=== PATIENT | female | born 1965 | race Caucasian/White ===

== ENCOUNTER → 2016-12-24 | Outpatient (CLI) | payer OTHER ==
[2016-12-31 17:04] LABS: HPV 16 Not Detected (NOTDET); HPV 18 Not Detected (NOTDET)
== END ==
LOC: MW.CHOBGYN 16:17
PROVIDERS: ATTEND Nurse Practitioner Women's Health
DX: Z12.4 Encounter for screening for malignant neoplasm of cervix (principal); N92.0 Excessive and frequent menstruation with regular cycle
CPT/HCPCS: 36415; 84443; 85025; 85610; 87624; G0145

== ENCOUNTER → 2017-01-12 | Outpatient (CLI) | payer OTHER ==
--- NOTE | 2017-01-12 15:45 | US ---
EXAMINATION: Transvaginal pelvic ultrasound HISTORY: Excessive menstruation COMPARISON: None TECHNIQUE: Grayscale, color Doppler, and spectral Doppler images obtained transvaginally. FINDINGS: The uterus is grossly normal in size, contour, and echogenicity without a focal uterine ma ss. The fundus of the uterus is not well characterized. The endometrial stripe measures roughly 9 mm . Small low density and cysts are noted. No significant free pelvic fluid. Small right ovarian cysts are noted measuring up to 2.3 cm. The left ovary appears normal in size a nd contour. Normal color and spectral Doppler flow bilaterally. No adnexal masses. IMPRESSION: 1. The uterine fundus is not well-characterized. 2. Small right ovarian cyst.
== END | disposition home or self-care (01) ==
LOC: MW.US 10:02
PROVIDERS: ATTEND Nurse Practitioner Women's Health
DX: N92.0 Excessive and frequent menstruation with regular cycle (principal); N83.201 Unspecified ovarian cyst, right side; K62.9 Disease of anus and rectum, unspecified; A63.0 Anogenital (venereal) warts; Z86.19 Personal history of other infectious and parasitic diseases
CPT/HCPCS: 76830; 76830-26; 87070; 87077; 87186; 87252; 87254; 87491; 87591; 87624

== ENCOUNTER → 2017-01-25 | Outpatient (CLI) | payer OTHER | LOC: MW.CHOBGYN 15:13 | PROVIDERS: ATTEND Obstetrics & Gynecology | DX: N92.0 Excessive and frequent menstruation with regular cycle (principal) | CPT/HCPCS: 88305 ==

== ENCOUNTER 2017-05-25 08:49 | Day surgery (SDC) | payer OTHER ==
[~2017-05-25 08:49] MED LIST: Ketorolac 30 MG/ML SDV ONE; Midazolam 1 MG/ML 2 ML SDV ONE; Ondansetron 4 MG/2 ML SDV ONE; Propofol 200 MG/20 ML SDV ONE; fentaNYL 100 MCG/2 ML SDV ONE
[2017-05-25] MEDS ORDERED: Lactated Ringers 1,000 ML IV SCH (09:30)
--- NOTE | 2017-05-25 09:43 | PCM.PREANE ---
Preanesthetic Assessment - Anesthesia/Transfusion/Family Hx Anesthesia History: Prior Anesthesia Reaction Other Type of Anesthesia Reaction Comment: "bad" reaction to anesthetic drug used in general () and dental Family History of Anesthesia Reaction: No Transfusion History: No Prior Transfusion(s) Intubation History: Unknown - Review of Systems General: No Symptoms Pulmonary: No Symptoms Cardiovascular: No Symptoms Gastrointestinal: No Symptoms Neurological: No Symptoms Other: Reports: None - Physical Assessment NPO Status Date: 05/24/17 NPO Status Time: 23:30 O2 Sat by Pulse Oximetry: 97 Respiratory Rate: 16 Vital Signs: Last Vital Signs Temp 36.4 C 05/25/17 09:29 Pulse 73 05/25/17 09:29 Resp 16 05/25/17 09:29 BP 93/49 L 05/25/17 09:29 Pulse Ox 97 05/25/17 09:29 Height: 1.6 m Weight: 78.018 kg ASA Class: 3 Mental Status: Alert & Oriented x3 Airway Class: Mallampati = 2 Dentition: Reports: Normal Dentition Thyro-Mental Finger Breadths: 2 Mouth Opening Finger Breadths: 2 ROM/Head Extension: Full Lungs: Clear to Auscultation, Normal Respiratory Effort Cardiovascular: Regular Rate, Regular Rhythm - Lab Values: Laboratory Last Values WBC 7.85 K/uL (4.0-11.0) 05/24/17 14:07 RBC 3.71 M/uL (4.30-5.90) L 05/24/17 14:07 Hgb 10.5 g/dL (12.0-16.0) L 05/24/17 14:07 Hct 33.2 % (36.0-46.0) L 05/24/17 14:07 MCV 89.5 fL (80.0-98.0) 05/24/17 14:07 MCH 28.3 pg (27.0-32.0) 05/24/17 14:07 MCHC 31.6 g/dL (31.0-37.0) 05/24/17 14:07 RDW Std Deviation 53.7 fl (28.0-62.0) 05/24/17 14:07 RDW Coeff of Dylon 17 % (11.0-15.0) H 05/24/17 14:07 Plt Count 388 K/uL (150-400) 05/24/17 14:07 MPV 8.60 fL (7.40-12.00) 05/24/17 14:07 Nucleated RBC % 0.0 /100WBC 05/24/17 14:07 Nucleated RBCs # 0 K/uL 05/24/17 14:07 Potassium 3.6 mmol/L (3.5-5.1) 05/24/17 14:07 - Allergies Allergies/Adverse Reactions: Allergies Allergy/AdvReac Type Severity Reaction Status Date / Time No Known Allergies Allergy Verified 05/21/17 16:10 - Blood Blood Available: No - Anesthesia Plan Pre-Op Medication Ordered: None - Acknowledgements Anesthesia Type Planned: General Anesthesia Pt an Appropriate Candidate for the Planned Anesthesia: Yes Alternatives and Risks of Anesthesia Discussed w Pt/Guardian: Yes Pt/Guardian Understands and Agrees with Anesthesia Plan: Yes PreAnesthesia Questionnaire Other HEENT History: uses reading glasses, has upper denture Cardiovascular History: Reports: Hypertension Respiratory History: Reports: Sleep Apnea Other Respiratory History: sometimes uses CPAP Gastrointestinal History: Reports: Irritable Bowel Syndrome 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, Musculoskeletal History: Reports: Fibromyalgia, Osteoporosis, RA Neurological History: Reports: Seizure Other Neuro History: had a seizure but thought it was related to PTSD Psychiatric History: Reports: Anxiety, Depression, PTSD Endocrine/Metabolic History: Reports: Hypothyroidism, Obesity/BMI 30+ Hematologic History: Reports: Anemia Immunologic History: Reports: Other (See Below) Other Immunologic History: has some form of Lupus Other Dermatologic History: rosacea - Past Surgical History HEENT Surgical History: Reports: Oral Surgery Other HEENT Surgeries/Procedures: dental Female Surgical History: Reports: Section Other Female Surgeries/Procedures: x3 Musculoskeletal Surgical History: Reports: None - SUBSTANCE USE Smoking Status *Q: Never Smoker Recreational Drug Use History: No - HOME MEDS Home Medications: Home Meds Cholecalciferol (Vitamin D3) [Vitamin D3] 50,000 unit PO WEEKLY 05/24/17 [ History] Diazepam [Valium] 5 mg PO BID 05/24/17 [History] Escitalopram [Lexapro] 20 mg PO DAILY 05/24/17 [History] Folic Acid 3 mg PO DAILY 05/24/17 [History] Gabapentin [Neurontin] 600 mg PO TID 05/24/17 [History] Ibuprofen 800 mg PO TID PRN 05/24/17 [History] Levothyroxine 25 mcg PO DAILY 05/24/17 [History] Lisinopril/Hydrochlorothiazide [Lisinopril-Hctz 10-12.5 mg Tab] 1 tab PO DAILY 05/24/17 [History] Methotrexate 2.5 mg PO DAILY 05/24/17 [History] busPIRone [Buspar] 15 mg PO TID 05/24/17 [History] predniSONE [Prednisone] 5 mg PO BID 05/24/17 [History] traMADol [Ultram] 50 mg PO Q4H PRN 05/24/17 [History] - CURRENT (IN HOUSE) MEDS Current Meds: Current Medications Lactated Ringer's (Ringers, Lactated) 1,000 mls @ 100 mls/hr IV ASDIRECTED [facility] Last Admin: 05/25/17 09:34 Dose: 100 mls/hr Discontinued Medications Fentanyl (Sublimaze) Confirm Administered Dose 200 mcg .ROUTE .STK-MED ONE Stop: 05/25/17 07:20 Ketorolac Tromethamine (Toradol) Confirm Administered Dose 30 mg .ROUTE .STK- MED ONE Stop: 05/25/17 07:31 Lidocaine HCl (Xylocaine-Mpf 1%) Confirm Administered Dose 5 ml .ROUTE .STK-MED ONE Stop: 05/25/17 07:20 Midazolam HCl (Versed 1 Mg/Ml) Confirm Administered Dose 2 mg .ROUTE .STK-MED ONE Stop: 05/25/17 07:20 Ondansetron HCl (Zofran) Confirm Administered Dose 4 mg .ROUTE .STK-MED ONE Stop: 05/25/17 07:20 Propofol (Diprivan 20 Ml) Confirm Administered Dose 200 mg .ROUTE .STK-MED ONE Stop: 05/25/17 07:20
[2017-05-25] MEDS ORDERED: Ferric Subsulfate Topical Soln 8 GM (8 ML) Bottle ONE (09:52)
[2017-05-25] MEDS ORDERED: ceFAZolin 1 GM Vial ONE (10:45)
[2017-05-25] MEDS ORDERED: methylPREDNISolone Sodium Succinate 125 MG/2 ML SDV ONE (10:46)
--- NOTE | 2017-05-25 11:42 | PCM.OPNOTE ---
- General Post-Op/Procedure Note Date of Surgery/Procedure: 05/25/17 Operative Procedure(s): Colposcopy with multiple cervical biopsies, operative hysteroscopy with directed endometrial biopsy, fractional dilatation and curettage, thermal endometrial ablation Findings: Anteverted uterus, sounding to 8.5 cm. Multiple polypoid structures along posterior uterine wall, biopsied. Bilateral tubal ostia were visualized. Colposcopic findings, included visualization of entire transformation zone, with acetowhite epithelium noted, and some vascular prominence at 2 o'clock Pre Op Diagnosis: Menorrhagia, ASCUS pap with high risk HPV Post-Op Diagnosis: Same Anesthesia Technique: General LMA Primary Surgeon: Kristyn French Anesthesia Provider: Delroy Rodríguez Wordpress Developer: Raimundo Perdomo Pathology: Cervical biopsies at the 2 o'clock, 6 o'clock, and 9 o'clock positions, directed endometrial biopsy at posterior uterine wall, endometrial curettings, endocervical curettings Fluid Replacement, Intraop: 900 (hysteroscopic deficit 125 ml NS) EBL in mLs: 10 Complications: None known Condition: Good
[2017-05-25] MEDS ORDERED: fentaNYL 100 MCG/2 ML SDV ONE (11:53)
[2017-05-25] MEDS: fentaNYL 100 MCG/2 ML SDV IVPUSH PRN ×2 (11:56→12:01)
[2017-05-25] MEDS ORDERED: Acetaminophen/HYDROcodone 325-5 MG Tab PO ONE (12:44)
--- NOTE | 2017-05-25 13:29 | OR ---
SURGEON: Kristyn French M.D. DATE OF PROCEDURE: 05/25/2017 PREOPERATIVE DIAGNOSES: Menorrhagia and abnormal Pap atypical squamous cells of undetermined significance with positive human papillomavirus. POSTOPERATIVE DIAGNOSES: Menorrhagia and abnormal Pap atypical squamous cells of undetermined significance with positive human papillomavirus. PROCEDURES: 1. Colposcopy with multiple cervical biopsies. 2. Operative hysteroscopy with directed endometrial biopsy. 3. Fractional dilation and curettage and Gladis endometrial ablation. PHERESIS NURSE: AMAYA [email or web address]. ANESTHESIA: General. ESTIMATED BLOOD LOSS: Less than 50 mL. FLUIDS: 900 mL crystalloid. Hysteroscopic deficit of 125 mL normal saline. COMPLICATION: None known. DISPOSITION: Stable to recovery. OPERATIVE FINDINGS: Uterus is sharply anteverted, it sounds to 8.5 cm with a cervical length of 4.5 cm giving a fundal length of 4 cm. The uterine cavity was well visualized. Bilateral tubal ostia were visualized. The posterior wall of the endometrium had a prominent irregular growth which was directly biopsied. Upon colposcopy, the entire transformation zone was visible and was acetowhite with some atypical vessels at 2 o'clock. Biopsies were taken at 2, 9, and 6 o'clock. BRIEF HISTORY: This is a 51-year-old female. She presents with a history of anemia and menorrhagia, which has been uncontrolled following office endometrial biopsy, which was benign in January and failing norethindrone, and with a hemoglobin ranging from 10.2 to 10.8. She presents for further evaluation and treatment. She also had an atypical Pap with a positive HPV with a colposcopy performed in the office, however, biopsies were not performed and therefore she does desire to proceed with a colposcopy with cervical biopsies. Due to her heavy bleeding, she desires also to proceed with an endometrial ablation, which is acceptable given the fact that she has had a previously benign endometrial biopsy. Risks were discussed including risk of bleeding, infection, uterine perforation with injury to surrounding organs, risk of thromboembolic event, and risk of anesthesia, additional risk of endometrial ablation include masking future endometrial cancer, risk of post tubal ablation syndrome. Risk of failure of 10% to 15%. She understands under no circumstances should she become after the ablation has occurred. Understanding all these risks, she does desire to proceed. DESCRIPTION OF PROCEDURE: With the patient in dorsal lithotomy position, under adequate general analgesia, an appropriate time-out was held. The speculum was placed in the vagina. The cervix was treated with 5% dilute acetic acid and was inspected with the colposcope with findings as noted above. Biopsies of the cervix were taken at 2, 6, and 9 o'clock positions and sent each as separate specimens. The biopsy sites were treated with Monsel solution as well as silver nitrate and excellent hemostasis was obtained. With this being completed, the duck bill operator's gloves were changed and we scrubbed, and the perineum was prepped appropriately with Betadine as well as the vagina and draped in the usual fashion for vaginal surgery. The bladder had been drained with a Red La catheter. The speculum was placed into the vagina. The uterus had been palpated and was sharply anteverted 8-week size. The cervix was sounded to 4.5 cm. The uterine fundus was sounded to 8.5 cm. The cervix was further dilated to a 6 mm Hegar dilator. Hysteroscopy was then performed using normal saline as a distending medium and with the hysteroscopic fluid management system. There was excellent visualization. Bilateral tubal ostia were identified. The MyoSure device was utilized to directly biopsy the posterior wall endometrium, which was fairly prominent and irregular. This being completed, a sharp curettage of the endocervix was performed and collected with a Cytobrush and sharp curettage of the endometrium was performed with a moderate amount of tissue obtained. This being completed, the Gladis system was set up according to jigger artisan guidelines. The arms were retracted and with negative pressure on the balloon, the Gladis device was placed to the uterine fundus and gently tapped. The fundus as well as the arms were spread after the balloon was released. The balloon was then filled with air and test of patency was performed and no evidence of perforation. Therefore, the 2-minute treatment cycle was performed. When this was completed, the balloon was desufflated. The arms were retracted and the instrument was removed. Hysteroscopy was repeated and it looked like there was excellent coverage of the endometrium except in the far cornual locations and there was no evidence of any perforation. Therefore, the hysteroscope was removed. The cervix was again inspected for hemostasis and it was completely hemostatic. Therefore, the speculum was removed from the vagina. Final sponge, needle, and instrument counts were reported as correct. There were no known complications. The patient was transferred to recovery in good condition. JASON QUAN /[id number]
[2017-05-25 13:56] VITALS: BP 115/61
== END 2017-05-25 13:40 | disposition home or self-care (01) ==
LOC: MW.SDS 08:49
PROVIDERS: ATTEND Obstetrics & Gynecology
DX: N87.0 Mild cervical dysplasia (principal); M06.9 Rheumatoid arthritis, unspecified; M79.7 Fibromyalgia; I10 Essential (primary) hypertension; K58.9 Irritable bowel syndrome, unspecified; M81.0 Age-related osteoporosis without current pathological fracture; G47.30 Sleep apnea, unspecified; F41.9 Anxiety disorder, unspecified; F32.9 Major depressive disorder, single episode, unspecified; M32.9 Systemic lupus erythematosus, unspecified; E03.9 Hypothyroidism, unspecified; Z79.52 Long term (current) use of systemic steroids; Z79.899 Other long term (current) drug therapy; Z98.51 Tubal ligation status; Z98.890 Other specified postprocedural states; Z88.4 Allergy status to anesthetic agent
CPT/HCPCS: 36415; 57455; 58563; 84132; 85027; A9270; J0690; J1885; J2250; J2405; J2930; J3010; J7120; 00952; 88305; J2704

== ENCOUNTER 2017-11-07 11:12 | Emergency (ER) | payer OTHER ==
--- NOTE | 2017-11-07 11:29 | EDM.PDOC ---
ED HPI GENERAL MEDICAL PROBLEM - General Chief Complaint: Fever Stated Complaint: FEVER Time Seen by Provider: 11/07/17 11:19 Source of Information: Reports: Patient History Limitations: Reports: No Limitations - History of Present Illness INITIAL COMMENTS - FREE TEXT/NARRATIVE: HISTORY AND PHYSICAL: History of present illness: Patient is a 59-year-old female who presents to the emergency room today with complaints of fever, cough, sinus congestion. She states she was seen at the clinic on Wednesday by her primary care provider and placed on amoxicillin for sinus infection. She has been taking this medication and had felt like she was improving. Yesterday she noted the cough, nasal congestion and fever of 102. She states that the symptoms came on "all of a sudden". Has been taking her antibiotic, Tylenol/ibuprofen and scheduled prednisone (which she takes for her RA). She reports that her currently has influenza B and neither her or she M had been placed on Tamiflu. She denies any chest pain, shortness of breath, abdominal pain, nausea, vomiting or diarrhea. Review of systems: As per history of present illness and below otherwise all systems reviewed and negative. Past medical history: As per history of present illness and as reviewed below otherwise noncontributory. Surgical history: As per history of present illness and as reviewed below otherwise noncontributory. Social history: No reported history of drug or alcohol abuse. Family history: As per history of present illness and as reviewed below otherwise noncontributory. Physical exam: General: Well-developed and well-nourished 51-year-old female. Alert and oriented. Nontoxic appearing and in no acute distress. HEENT: Atraumatic, normocephalic, pupils reactive, negative for conjunctival pallor or scleral icterus, mucous membranes moist, TMs normal bilaterally, throat clear, neck supple, nontender, trachea midline. Lungs: Clear to auscultation, breath sounds equal bilaterally, chest nontender. Heart: S1S2, regular rate and rhythm Abdomen: Soft, nondistended, nontender. Negative for masses or hepatosplenomegaly. Negative for costovertebral tenderness. Pelvis: Stable nontender. Genitourinary: Deferred. Rectal: Deferred. Extremities: Atraumatic, negative for cords or calf pain. Neurovascular unremarkable. Skin: Skin is warm, dry and intact. Does have marlyn cheeks bilaterally. Neuro: Awake, alert, oriented. Cranial nerves II through XII unremarkable. Cerebellum unremarkable. Motor and sensory unremarkable throughout. Exam nonfocal. Oxygen saturation is 93% on room air read will do a DuoNeb, chest x-ray and influenza swab. After receiving the DuoNeb the patient reports she feels "much better". RT did provide the patient with a spacer as she does have a inhaler at home from a previous illness. She states that she believes the medication is almost out, would like a refill. Diagnostics: Influenza, chest x-ray Therapeutics: DuoNeb Impression: 1. Viral Upper Respiratory Illness. Plan: 1. Please continue and complete your antibiotic. 2. They Medrol Dosepak has been prescribed. Please hold your prednisone until this medication course is completed. Once the Medrol Dosepak is completed you may resume your regularly scheduled prednisone dosing. 3. Symptomatic care/supportive care: Tylenol and/or ibuprofen as needed for pain and fever management. Phenergan with codeine has been prescribed for cough and nighttime use he may take 5-10 amounts every 4-6 hours as needed. Condition may cause drowsiness he do not take it while driving or needing to be functioning outside of the house. 4. Follow-up with your primary care provider within the next week. Return to the ED as needed and as discussed. Definitive disposition and diagnosis as appropriate pending reevaluation and review of above. Duration: Day(s): Location: Reports: Head, Chest headache Pain Score (Numeric/FACES): 9 - Related Data Allergies Allergy/AdvReac Type Severity Reaction Status Date / Time Anesthetics - Amide Type Allergy Hypotension Verified 11/07/17 11:28 Home Meds: Home Meds Cholecalciferol (Vitamin D3) [Vitamin D3] 50,000 unit PO WEEKLY 05/24/17 [ History] Diazepam [Valium] 5 mg PO BID 05/24/17 [History] Escitalopram [Lexapro] 20 mg PO DAILY 05/24/17 [History] Folic Acid 3 mg PO DAILY 05/24/17 [History] Gabapentin [Neurontin] 600 mg PO TID 05/24/17 [History] Ibuprofen 800 mg PO TID PRN 05/24/17 [History] Levothyroxine 25 mcg PO DAILY 05/24/17 [History] Lisinopril/Hydrochlorothiazide [Lisinopril-Hctz 10-12.5 mg Tab] 1 tab PO DAILY 05/24/17 [History] Methotrexate 2.5 mg PO DAILY 05/24/17 [History] busPIRone [Buspar] 15 mg PO TID 05/24/17 [History] predniSONE [Prednisone] 5 mg PO BID 05/24/17 [History] traMADol [Ultram] 50 mg PO Q4H PRN 05/24/17 [History] Ibuprofen [IMW: Ibuprofen] 600 mg PO .EVERY 8 HOURS PRN #30 tab 05/25/17 [Rx] Past Medical History Other HEENT History: uses reading glasses, has upper denture Cardiovascular History: Reports: Hypertension Respiratory History: Reports: Sleep Apnea Other Respiratory History: sometimes uses CPAP Gastrointestinal History: Reports: Irritable Bowel Syndrome 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, Musculoskeletal History: Reports: Fibromyalgia, Osteoporosis, RA Neurological History: Reports: Seizure Other Neuro History: had a seizure but thought it was related to PTSD Psychiatric History: Reports: Anxiety, Depression, PTSD Endocrine/Metabolic History: Reports: Hypothyroidism, Obesity/BMI 30+ Hematologic History: Reports: Anemia Immunologic History: Reports: Other (See Below) Other Immunologic History: has some form of Lupus Other Dermatologic History: rosacea - Past Surgical History HEENT Surgical History: Reports: Oral Surgery Other HEENT Surgeries/Procedures: dental Female Surgical History: Reports: Section Other Female Surgeries/Procedures: x3 Musculoskeletal Surgical History: Reports: None Social & Family History - Tobacco Use Smoking Status *Q: Never Smoker - Recreational Drug Use Recreational Drug Use: No Drug Use in Last 12 Months: No ED ROS GENERAL - Review of Systems Review Of Systems: ROS reveals no pertinent complaints other than HPI. ED EXAM, GENERAL - Physical Exam Exam: See Below (See dictation) Course - Vital Signs Last Recorded V/S: Last Vital Signs Temp 97.7 F 11/07/17 11:29 Pulse 108 H 11/07/17 11:29 Resp 18 11/07/17 11:29 BP 123/76 11/07/17 11:29 Pulse Ox 95 11/07/17 11:29 - Orders/Labs/Meds Orders: Active Orders 24 hr Category Date Time Status RT Aerosol Therapy [RC] ASDIRECTED Care 11/07/17 11:47 Active Chest 2V [CR] Stat Exams 11/07/17 11:47 Taken Meds: Medications Discontinued Medications Generic Name Dose Route Start Last Admin Trade Name Aubree PRN Reason Stop Dose Admin Albuterol/Ipratropium 3 ml 11/07/17 11:47 11/07/17 11:52 Duoneb 3.0-0.5 Mg/3 Ml NEB 11/07/17 11:48 3 ml ONETIME ONE Administration Departure - Departure Time of Disposition: 12:45 Disposition: Home, Self-Care 01 Clinical Impression: Viral upper respiratory illness - Discharge Information Referrals: Jeremi Mancera MD [Primary Care Provider] - Forms: ED Department Discharge Additional Instructions: My general discharge The following information is given to patients seen in the emergency department who are being discharged to home. This information is to outline your options for follow-up care. We provide all patients seen in our emergency department with a follow-up referral. The need for follow-up, as well as the timing and circumstances, are variable depending upon the specifics of your emergency department visit. If you don't have a primary care physician on staff, we will provide you with a referral. We always advise you to contact your personal physician following an emergency department visit to inform them of the circumstance of the visit and for follow-up with them and/or the need for any referrals to a consulting specialist. The emergency department will also refer you to a specialist when appropriate. This referral assures that you have the opportunity for follow-up care with a specialist. All of these measure are taken in an effort to provide you with optimal care, which includes your follow-up. Under all circumstances we always encourage you to contact your private physician who remains a resource for coordinating your care. When calling for follow-up care, please make the office aware that this follow-up is from your recent emergency room visit. If for any reason you are refused follow-up, please contact the [facility] Emergency Department at and asked to speak to the emergency department charge nurse. [facility] [address] [place] [id number] 1. Please continue and complete your antibiotic. 2. They Medrol Dosepak has been prescribed. Please hold your prednisone until this medication course is completed. Once the Medrol Dosepak is completed you may resume your regularly scheduled prednisone dosing. 3. Symptomatic care/supportive care: Tylenol and/or ibuprofen as needed for pain and fever management. Phenergan with codeine has been prescribed for cough and nighttime use he may take 5-10 amounts every 4-6 hours as needed. Condition may cause drowsiness he do not take it while driving or needing to be functioning outside of the house. 4. Follow-up with your primary care provider within the next week. Return to the ED as needed and as discussed. - My Orders Last 24 Hours: My Active Orders 11/07/17 11:47 RT Aerosol Therapy [RC] ASDIRECTED Chest 2V [CR] Stat - Assessment/Plan Last 24 Hours: My Active Orders 11/07/17 11:47 RT Aerosol Therapy [RC] ASDIRECTED Chest 2V [CR] Stat
[2017-11-07 11:31] VITALS: BP 123/76
[2017-11-07] MEDS ORDERED: Albuterol/Ipratropium 3.0-0.5 MG/3 ML Neb Soln NEB ONE (11:47)
--- NOTE | 2017-11-08 16:06 | CR ---
EXAM DATE: 11/07/17 PATIENT'S AGE: 51 Patient: ARINA HERNDON Facility: [place], [place] Site . Site : [id number] Study: XRay Chest [id number] 12:22:17 PM Ordering Physician: Doctor Trujillo Final Report: INDICATION: Pain. Shortness breath. TECHNIQUE: PA and lateral chest x-ray. Findings : Heart size normal. Lungs clear. Chest otherwise negative without acute disease. Dictated by Roman Jeffery MD @ Nov 07 2017 12:58PM (Electronic Signature) Report Signed by Proxy. JOAN
== END 2017-11-07 13:08 | disposition home or self-care (01) ==
LOC: MW.ED 11:12
DX: J06.9 Acute upper respiratory infection, unspecified (principal); I10 Essential (primary) hypertension; E03.9 Hypothyroidism, unspecified; Z79.899 Other long term (current) drug therapy
CPT/HCPCS: 71046; 71046-26; 87804; 94640; 99283; 99284-25

== ENCOUNTER 2018-04-26 13:51 | Emergency (ER) | payer OTHER ==
--- NOTE | 2018-04-26 13:57 | EDM.PDOC ---
ED HPI GENERAL MEDICAL PROBLEM - General Stated Complaint: DIZZY Time Seen by Provider: 04/26/18 14:01 Source of Information: Reports: Patient History Limitations: Reports: No Limitations - History of Present Illness INITIAL COMMENTS - FREE TEXT/NARRATIVE: HISTORY AND PHYSICAL: []Sudden onset of dizziness 45 minutes continues to be dizzy History of Present Illness: sudden onset of dizziness feeling like she is almost "drunk" worse when she moves her head Patient states that she was at work and all of a sudden became dizzy when she was talking on the phone with somebody from her job. She states that she felt like the room was spinning and that she was drunk. She states she has never had this sensation prior to today. She says this is ongoing as she is now in the emergency room. She states she had difficulty walking and then had to have the assistance of her otherwise she would've fallen. She states that on the right over she felt like she was riding an amusement ride. She has been on long- term steroids due to rheumatoid arthritis. She states that about a week ago she went from 10 mg to now at 5 mg. She states that she also feels nauseous although she has not had an episode of vomiting. She has a history of rheumatoid arthritis, fibromyalgia, diabetes but is not currently on medication. She denies fever, chills, chest tightness, shortness of breath, diaphoresis, cough, lower extremity edema, or syncope. She denies abdominal pain, diarrhea, constipation, or blood in her stool or urine. Review of Systems: As per history of present illness and below otherwise all systems reviewed and negative. Past medical history: As per history of present illness and as reviewed below otherwise noncontributory. Surgical history: As per history of present illness and as reviewed below otherwise noncontributory. Social history: No reported history of drug or alcohol abuse. Family history: As per history of present illness and as reviewed below otherwise noncontributory. Physical exam: General: Patient is a 52-year-old female, alert, oriented to person, place, and time but somewhat confused and slow to answer questions. HEENT: Atraumatic, normocehpalic, pupils reactive but delayed, negative for conjunctival pallor or scleral icterus, mucous membranes moist, throat clear, neck supple, nontender, trachea midline. Lungs: Clear to auscultation, breath sounds equal bilaterally, chest non tender. Heart: S1S2, regular, negative for clicks, rubs, or JVD. Abdomen: Soft, nondistended, nontender. Negative for masses or hepatossplenmegaly. Negative for costovertebral tenderness. Pelvis: Stable nontender. Genitourinary: Deferred. Rectal: Deferred Extremities: Atraumatic, negative for cords or calf pain. Neurovascular unremarkable. Neuro: Awake, alert, oriented. Cranial nerves II through XII unremarkable. Cerebellum unremarkable. Motor and sensory unremarkable throughout. Exam nonfocal. Diagnostics: Head CT without contrast, EKG CBC CMP urine drug screen UA urine culture Therapeutics: []Antivert 25 mg by mouth Impression: []vertigo Leukocytosis urine Plan: []Discharge Referral to Dr. Che Justice Bactrim DS tablet twice daily for 3 days Definitive disposition and diagnosis as appropriate pending reevaluation and review of above. Onset: Today, Sudden Duration: Minutes: Location: Reports: Head - Related Data Allergies Allergy/AdvReac Type Severity Reaction Status Date / Time Anesthetics - Amide Type Allergy Hypotension Verified 11/07/17 11:28 Home Meds: Home Meds Cholecalciferol (Vitamin D3) [Vitamin D3] 50,000 unit PO WEEKLY 05/24/17 [ History] Diazepam [Valium] 5 mg PO BID 05/24/17 [History] Escitalopram [Lexapro] 20 mg PO DAILY 05/24/17 [History] Folic Acid 3 mg PO DAILY 05/24/17 [History] Gabapentin [Neurontin] 600 mg PO TID 05/24/17 [History] Ibuprofen 800 mg PO TID PRN 05/24/17 [History] Levothyroxine 25 mcg PO DAILY 05/24/17 [History] Lisinopril/Hydrochlorothiazide [Lisinopril-Hctz 10-12.5 mg Tab] 1 tab PO DAILY 05/24/17 [History] busPIRone [Buspar] 15 mg PO TID 05/24/17 [History] predniSONE [Prednisone] 5 mg PO DAILY 05/24/17 [History] traMADol [Ultram] 50 mg PO Q4H PRN 05/24/17 [History] Ibuprofen [IMW: Ibuprofen] 600 mg PO .EVERY 8 HOURS PRN #30 tab 05/25/17 [Rx] Albuterol [Ventolin HFA] 1 puff INH Q4HR #1 inhaler 11/07/17 [Rx] DULoxetine [Cymbalta] 1 tab DAILY 04/26/18 [History] Sulfamethoxazole/Trimethoprim [Bactrim Ds Tablet] 1 each PO BID #6 tablet [Rx] Past Medical History HEENT History: Reports: Other (See Below) Other HEENT History: uses reading glasses, has upper denture Cardiovascular History: Reports: Hypertension Respiratory History: Reports: Sleep Apnea Other Respiratory History: sometimes uses CPAP Gastrointestinal History: Reports: Irritable Bowel Syndrome 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: 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 Uterine Bleeding, Musculoskeletal History: Reports: Fibromyalgia, Osteoporosis, RA Neurological History: Reports: Seizure Other Neuro History: had a seizure but thought it was related to PTSD Psychiatric History: Reports: Anxiety, Depression, PTSD Endocrine/Metabolic History: Reports: Hypothyroidism, Obesity/BMI 30+ Hematologic History: Reports: Anemia Immunologic History: Reports: Other (See Below) Other Immunologic History: has some form of Lupus Other Dermatologic History: rosacea - Infectious Disease History Infectious Disease History: Reports: Chicken Pox, Shingles - Past Surgical History HEENT Surgical History: Reports: Oral Surgery Other HEENT Surgeries/Procedures: dental Female Surgical History: Reports: Section Other Female Surgeries/Procedures: x3 Musculoskeletal Surgical History: Reports: None Social & Family History - Family History Family Medical History: Noncontributory - Caffeine Use Caffeine Use: Reports: Coffee ED ROS GENERAL - Review of Systems Review Of Systems: ROS reveals no pertinent complaints other than HPI. ED EXAM, GENERAL - Physical Exam Exam: See Below (see dictation) EKG INTERPRETATION EKG Date: 04/26/18 Rhythm: NSR Comparison: NA - No Prior EKG Course - Vital Signs Last Recorded V/S: Last Vital Signs Temp 36.1 C 04/26/18 13:58 Pulse 76 04/26/18 15:53 Resp 16 04/26/18 15:53 BP 121/70 04/26/18 15:53 Pulse Ox 97 04/26/18 15:53 - Orders/Labs/Meds Orders: Active Orders 24 hr Category Date Time Status EKG Documentation Completion [RC] STAT Care 04/26/18 14:15 Active Head wo Cont [CT] Stat Exams 04/26/18 14:13 Taken CULTURE URINE [RM] Stat Lab 04/26/18 15:50 Ordered DRUG SCREEN, URINE [URCHEM] Stat Lab 04/26/18 15:50 Ordered UA W/MICROSCOPIC [URIN] Stat Lab 04/26/18 15:50 Ordered Sodium Chloride 0.9% [Saline Flush] Med 04/26/18 14:26 Active 10 ml FLUSH ASDIRECTED PRN Sodium Chloride 0.9% [Saline Flush] Med 04/26/18 14:27 Active 10 ml FLUSH ASDIRECTED PRN Sodium Chloride 0.9% [Saline Flush] Med 04/26/18 14:26 Active 2.5 ml FLUSH ASDIRECTED PRN Sodium Chloride 0.9% [Saline Flush] Med 04/26/18 14:27 Active 2.5 ml FLUSH ASDIRECTED PRN Saline Lock Insert [OM.PC] Stat [facility] 04/26/18 14:17 Ordered Saline Lock Insert [OM.PC] Stat [facility] 04/26/18 14:27 Ordered Medication Orders Sodium Chloride (Saline Flush) 10 ml FLUSH ASDIRECTED PRN PRN Reason: Keep Vein Open Sodium Chloride (Saline Flush) 2.5 ml FLUSH ASDIRECTED PRN PRN Reason: Keep Vein Open Sodium Chloride (Saline Flush) 10 ml FLUSH ASDIRECTED PRN PRN Reason: Keep Vein Open Sodium Chloride (Saline Flush) 2.5 ml FLUSH ASDIRECTED PRN PRN Reason: Keep Vein Open Labs: Laboratory Tests 04/26/18 04/26/18 04/26/18 Range/Units 14:37 14:37 15:50 WBC 6.15 (4.0-11.0) K/uL RBC 4.55 (4.30-5.90) M/uL Hgb 14.4 (12.0-16.0) g/dL Hct 41.9 (36.0-46.0) % MCV 92.1 (80.0-98.0) fL MCH 31.6 (27.0-32.0) pg MCHC 34.4 (31.0-37.0) g/dL RDW Std Deviation 42.4 (28.0-62.0) fl RDW Coeff of Dylon 13 (11.0-15.0) % Plt Count 210 (150-400) K/uL MPV 9.10 (7.40-12.00) fL Neut % (Auto) 81.2 H (48.0-80.0) % Lymph % (Auto) 11.5 L (16.0-40.0) % [place] % (Auto) 6.7 (0.0-15.0) % Eos % (Auto) 0.3 (0.0-7.0) % Baso % (Auto) 0.3 (0.0-1.5) % Neut # (Auto) 5.0 (1.4-5.7) K/uL Lymph # (Auto) 0.7 (0.6-2.4) K/uL [place] # (Auto) 0.4 (0.0-0.8) K/uL Eos # (Auto) 0.0 (0.0-0.7) K/uL Baso # (Auto) 0.0 (0.0-0.1) K/uL Nucleated RBC % 0.0 /100WBC Nucleated RBCs # 0 K/uL Sodium 139 (136-145) mmol/L Potassium 3.6 (3.5-5.1) mmol/L Chloride 102 (98-107) mmol/L Carbon Dioxide 28.7 (21.0-32.0) mmol/L BUN 11 (7.0-18.0) mg/dL Creatinine 0.6 (0.6-1.0) mg/dL Est Cr Clr Drug Dosing 91.76 mL/min Estimated GFR (MDRD) > 60.0 ml/min Glucose 89 (74-106) mg/dL Calcium 9.1 (8.5-10.1) mg/dL Total Bilirubin 0.3 (0.2-1.0) mg/dL AST 25 (15-37) IU/L ALT 31 (14-63) IU/L Alkaline Phosphatase 42 L (46-116) U/L Troponin I < 0.050 (0.000-0.056) ng/mL Total Protein 7.5 (6.4-8.2) g/dL Albumin 4.1 (3.4-5.0) g/dL Globulin 3.4 (2.0-3.5) g/dL Albumin/Globulin Ratio 1.2 L (1.3-2.8) Urine Color YELLOW Urine Appearance CLEAR Urine pH 6.0 (5.0-8.0) Ur Specific [place] <= 1.005 (1.001-1.035) Urine Protein NEGATIVE (NEGATIVE) mg/dL Urine Glucose (UA) NEGATIVE (NEGATIVE) mg/dL Urine Ketones NEGATIVE (NEGATIVE) mg/dL Urine Occult Blood NEGATIVE (NEGATIVE) Urine Nitrite NEGATIVE (NEGATIVE) Urine Bilirubin NEGATIVE (NEGATIVE) Urine Urobilinogen 0.2 (<2.0) EU/dL Ur Leukocyte Esterase NEGATIVE (NEGATIVE) Urine RBC 0-1 (0-2/HPF) Urine WBC 0-1 (0-5/HPF) Ur Epithelial Cells MANY (NONE-FEW) Urine Bacteria 2+ H (NEGATIVE) Urine Opiates Screen (NEGATIVE) Ur Oxycodone Screen (NEGATIVE) Urine Methadone Screen (NEGATIVE) Ur Barbiturates Screen (NEGATIVE) Ur Phencyclidine Scrn (NEGATIVE) Ur Amphetamine Screen (NEGATIVE) U Methamphetamines Scrn (NEGATIVE) U Benzodiazepines Scrn (NEGATIVE) U Cocaine Metab Screen (NEGATIVE) U Marijuana (THC) Screen (NEGATIVE) Ethyl Alcohol < 3.0 mg/dL 04/26/18 Range/Units 15:50 WBC (4.0-11.0) K/uL RBC (4.30-5.90) M/uL Hgb (12.0-16.0) g/dL Hct (36.0-46.0) % MCV (80.0-98.0) fL MCH (27.0-32.0) pg MCHC (31.0-37.0) g/dL RDW Std Deviation (28.0-62.0) fl RDW Coeff of Dylon (11.0-15.0) % Plt Count (150-400) K/uL MPV (7.40-12.00) fL Neut % (Auto) (48.0-80.0) % Lymph % (Auto) (16.0-40.0) % [place] % (Auto) (0.0-15.0) % Eos % (Auto) (0.0-7.0) % Baso % (Auto) (0.0-1.5) % Neut # (Auto) (1.4-5.7) K/uL Lymph # (Auto) (0.6-2.4) K/uL [place] # (Auto) (0.0-0.8) K/uL Eos # (Auto) (0.0-0.7) K/uL Baso # (Auto) (0.0-0.1) K/uL Nucleated RBC % /100WBC Nucleated RBCs # K/uL Sodium (136-145) mmol/L Potassium (3.5-5.1) mmol/L Chloride (98-107) mmol/L Carbon Dioxide (21.0-32.0) mmol/L BUN (7.0-18.0) mg/dL Creatinine (0.6-1.0) mg/dL Est Cr Clr Drug Dosing mL/min Estimated GFR (MDRD) ml/min Glucose (74-106) mg/dL Calcium (8.5-10.1) mg/dL Total Bilirubin (0.2-1.0) mg/dL AST (15-37) IU/L ALT (14-63) IU/L Alkaline Phosphatase (46-116) U/L Troponin I (0.000-0.056) ng/mL Total Protein (6.4-8.2) g/dL Albumin (3.4-5.0) g/dL Globulin (2.0-3.5) g/dL Albumin/Globulin Ratio (1.3-2.8) Urine Color Urine Appearance Urine pH (5.0-8.0) Ur Specific [place] (1.001-1.035) Urine Protein (NEGATIVE) mg/dL Urine Glucose (UA) (NEGATIVE) mg/dL Urine Ketones (NEGATIVE) mg/dL Urine Occult Blood (NEGATIVE) Urine Nitrite (NEGATIVE) Urine Bilirubin (NEGATIVE) Urine Urobilinogen (<2.0) EU/dL Ur Leukocyte Esterase (NEGATIVE) Urine RBC (0-2/HPF) Urine WBC (0-5/HPF) Ur Epithelial Cells (NONE-FEW) Urine Bacteria (NEGATIVE) Urine Opiates Screen NEGATIVE (NEGATIVE) Ur Oxycodone Screen NEGATIVE (NEGATIVE) Urine Methadone Screen NEGATIVE (NEGATIVE) Ur Barbiturates Screen NEGATIVE (NEGATIVE) Ur Phencyclidine Scrn NEGATIVE (NEGATIVE) Ur Amphetamine Screen NEGATIVE (NEGATIVE) U Methamphetamines Scrn NEGATIVE (NEGATIVE) U Benzodiazepines Scrn POSITIVE (NEGATIVE) U Cocaine Metab Screen NEGATIVE (NEGATIVE) U Marijuana (THC) Screen NEGATIVE (NEGATIVE) Ethyl Alcohol mg/dL Meds: Medications Generic Name Dose Route Start Last Admin Trade Name Freq PRN Reason Stop Dose Admin Sodium Chloride 10 ml 04/26/18 14:26 Saline Flush FLUSH ASDIRECTED PRN Keep Vein Open Sodium Chloride 2.5 ml 04/26/18 14:26 Saline Flush FLUSH ASDIRECTED PRN Keep Vein Open Sodium Chloride 10 ml 04/26/18 14:27 Saline Flush FLUSH ASDIRECTED PRN Keep Vein Open Sodium Chloride 2.5 ml 04/26/18 14:27 Saline Flush FLUSH ASDIRECTED PRN Keep Vein Open Discontinued Medications Generic Name Dose Route Start Last Admin Trade Name Freq PRN Reason Stop Dose Admin Acetaminophen 650 mg 04/26/18 15:51 04/26/18 16:26 Tylenol PO 04/26/18 15:52 Not Given NOW ONE Ibuprofen 400 mg 04/26/18 16:26 04/26/18 16:40 Motrin PO 04/26/18 16:27 400 mg ONETIME ONE Administration Meclizine HCl 25 mg 04/26/18 16:35 04/26/18 16:40 Antivert PO 04/26/18 16:36 25 mg ONETIME ONE Administration Ondansetron HCl 4 mg 04/26/18 14:27 04/26/18 14:45 Zofran IVPUSH 04/26/18 14:28 4 mg ONETIME ONE Administration Departure - Departure Time of Disposition: 16:43 Disposition: Home, Self-Care 01 Condition: Good, Fair Clinical Impression: Vertigo UTI (urinary tract infection) Qualifiers: Urinary tract infection type: acute cystitis Hematuria presence: without hematuria Qualified Code(s): N30.00 - Acute cystitis without hematuria - Discharge Information *PRESCRIPTION DRUG MONITORING PROGRAM REVIEWED*: Not Applicable *COPY OF PRESCRIPTION DRUG MONITORING REPORT IN PATIENT GENIE: Not Applicable Prescriptions: Sulfamethoxazole/Trimethoprim [Bactrim Ds Tablet] 1 each PO BID #6 tablet Instructions: Benign Positional Vertigo Referrals: PCP,Unknown [Primary Care Provider] - Che Justice MD [Physician] - Additional Instructions: The following information is given to patients seen in the emergency department who are being discharged to home. This information is to outline your options for follow-up care. We provide all patients seen in our emergency department with a follow-up referral. The need for follow-up, as well as the timing and circumstances, are variable depending upon the specifics of your emergency department visit. If you don't have a primary care physician on staff, we will provide you with a referral. We always advise you to contact your personal physician following an emergency department visit to inform them of the circumstance of the visit and for follow-up with them and/or the need for any referrals to a consulting specialist. The emergency department will also refer you to a specialist when appropriate. This referral assures that you have the opportunity for followup care with a specialist. All of these measure are taken in an effort to provide you with optimal care, which includes your followup. Under all circumstances we always encourage you to contact your private physician who remains a resource for coordinating your care. When calling for followup care, please make the office aware that this follow-up is from your recent emergency room visit. If for any reason you are refused follow-up, please contact the [facility] emergency department at and asked to speak to the emergency department charge nurse. Head CT was negative for any bleed or lesion Sinuses were clear Vertigo remains Your treated with Antivert for the vertical Follow-up with Dr. Che Justice [facility] - Neurology Professional Building [address] [place] [address], [address] [place] [address] Return to the emergency room instructed - My Orders Last 24 Hours: My Active Orders 04/26/18 14:13 Head wo Cont [CT] Stat 04/26/18 14:15 EKG Documentation Completion [RC] STAT 04/26/18 14:17 Saline Lock Insert [OM.PC] Stat 04/26/18 14:26 Sodium Chloride 0.9% [Saline Flush] 10 ml FLUSH ASDIRECTED PRN Sodium Chloride 0.9% [Saline Flush] 2.5 ml FLUSH ASDIRECTED PRN 04/26/18 14:27 Sodium Chloride 0.9% [Saline Flush] 10 ml FLUSH ASDIRECTED PRN Sodium Chloride 0.9% [Saline Flush] 2.5 ml FLUSH ASDIRECTED PRN Saline Lock Insert [OM.PC] Stat 04/26/18 15:50 CULTURE URINE [RM] Stat DRUG SCREEN, URINE [URCHEM] Stat UA W/MICROSCOPIC [URIN] Stat - Assessment/Plan Last 24 Hours: My Active Orders 04/26/18 14:13 Head wo Cont [CT] Stat 04/26/18 14:15 EKG Documentation Completion [RC] STAT 04/26/18 14:17 Saline Lock Insert [OM.PC] Stat 04/26/18 14:26 Sodium Chloride 0.9% [Saline Flush] 10 ml FLUSH ASDIRECTED PRN Sodium Chloride 0.9% [Saline Flush] 2.5 ml FLUSH ASDIRECTED PRN 04/26/18 14:27 Sodium Chloride 0.9% [Saline Flush] 10 ml FLUSH ASDIRECTED PRN Sodium Chloride 0.9% [Saline Flush] 2.5 ml FLUSH ASDIRECTED PRN Saline Lock Insert [OM.PC] Stat 04/26/18 15:50 CULTURE URINE [RM] Stat DRUG SCREEN, URINE [URCHEM] Stat UA W/MICROSCOPIC [URIN] Stat
[2018-04-26] MEDS ORDERED: Sodium Chloride 0.9% 2.5 ML Syringe FLUSH PRN ×2 (14:26→14:27)
[2018-04-26] MEDS ORDERED: Sodium Chloride 0.9% 10 ML Syringe FLUSH PRN ×2 (14:26→14:27)
[2018-04-26] MEDS ORDERED: Ondansetron 4 MG/2 ML SDV IVPUSH ONE (14:27)
[2018-04-26 15:47] LABS: CHLORIDE,CL 102 mmol/L (98-107); SODIUM,NA 139 mmol/L (136-145)
[2018-04-26] MEDS ORDERED: Acetaminophen 325 MG Tab PO ONE (15:51)
[2018-04-26] MEDS ORDERED: Ibuprofen 400 MG Tab PO ONE (16:26)
[2018-04-26] MEDS ORDERED: Meclizine 25 MG Tab PO ONE (16:35)
[2018-04-26 16:58] VITALS: BP 99/71
--- NOTE | 2018-04-27 09:08 | CT ---
EXAM DATE: 04/26/18 PATIENT'S AGE: 52 Patient: ARINA HERNDON Facility: [place], [place] Site . Site : [id number] Study: CT Head [id number]/[id number] 3:41:09 PM Ordering Physician: Doctor Trujillo Final Report: INDICATION: dizzy, weakness CT HEAD WITHOUT CONTRAST TECHNIQUE: Multiple axial CT images were performed through the head without intravenous contrast administration. COMPARISON: No previous studies are currently available for comparison. FINDINGS: No acute intracranial hemorrhage is identified. No extra-axial collections are evident and there is no mass effect or midline shift. Ventricles are normal in size and configuration. Brain parenchyma appears normal with unremarkable onofre-white differentiation. Osseous structures are within normal limits and no fractures are seen. Included portions of the paranasal sinuses and mastoid air cells are normally aerated. IMPRESSION: Normal non-contrast head CT. BORIS MIRZA MD [employer] Dictated by: Paresh Mirza MD @ 04/26/2018 16:15:24 (Electronic Signature) Report Signed by Proxy. [facility]
== END 2018-04-26 16:59 | disposition home or self-care (01) ==
LOC: MW.ED 13:51
DX: N30.00 Acute cystitis without hematuria (principal); R42 Dizziness and giddiness; I10 Essential (primary) hypertension; E66.9 Obesity, unspecified; Z88.8 Allergy status to other drugs, medicaments and biological substances; Z79.899 Other long term (current) drug therapy
CPT/HCPCS: 36415; 70450; 80053; 80305; 81001; 84484; 85025; 87086; 93005; 96374; 99284; A9270; G0480; J2405; 99283

== ENCOUNTER 2018-06-21 08:28 | Day surgery (SDC) | payer OTHER ==
[~2018-06-21 08:28] MED LIST changes: -Ketorolac 30 MG/ML SDV ONE; +Lactated Ringers 1,000 ML IV SCH; -Midazolam 1 MG/ML 2 ML SDV ONE; -Ondansetron 4 MG/2 ML SDV ONE; -Propofol 200 MG/20 ML SDV ONE; -fentaNYL 100 MCG/2 ML SDV ONE
--- NOTE | 2018-06-21 08:53 | PCM.PREANE ---
Preanesthetic Assessment - Anesthesia/Transfusion/Family Hx Anesthesia History: Prior Anesthesia Reaction Other Type of Anesthesia Reaction Comment: "allergy to lidocaine" hypotention Family History of Anesthesia Reaction: No Transfusion History: No Prior Transfusion(s) Intubation History: Unknown - Review of Systems General: No Symptoms Pulmonary: No Symptoms Cardiovascular: No Symptoms Gastrointestinal: No Symptoms Neurological: No Symptoms Other: Reports: None - Physical Assessment Height: 1.6 m Weight: 82.1 kg ASA Class: 2 Mental Status: Alert & Oriented x3 Airway Class: Mallampati = 3 Dentition: Reports: Dentures (upper) Thyro-Mental Finger Breadths: 2 Mouth Opening Finger Breadths: 2 (small mouth) ROM/Head Extension: Full Lungs: Clear to Auscultation, Normal Respiratory Effort Cardiovascular: Regular Rate, Regular Rhythm - Lab Values: Laboratory Last Values WBC 11.01 K/uL (4.0-11.0) H 06/20/18 14:11 RBC 4.41 M/uL (4.30-5.90) 06/20/18 14:11 Hgb 14.2 g/dL (12.0-16.0) 06/20/18 14:11 Hct 41.7 % (36.0-46.0) 06/20/18 14:11 MCV 94.6 fL (80.0-98.0) 06/20/18 14:11 MCH 32.2 pg (27.0-32.0) H 06/20/18 14:11 MCHC 34.1 g/dL (31.0-37.0) 06/20/18 14:11 RDW Std Deviation 44.5 fl (28.0-62.0) 06/20/18 14:11 RDW Coeff of Dylon 13 % (11.0-15.0) 06/20/18 14:11 Plt Count 220 K/uL (150-400) 06/20/18 14:11 MPV 9.10 fL (7.40-12.00) 06/20/18 14:11 Nucleated RBC % 0.0 /100WBC 06/20/18 14:11 Nucleated RBCs # 0 K/uL 06/20/18 14:11 HCG, Qual NEGATIVE (NEG) 06/20/18 14:11 - Allergies Allergies/Adverse Reactions: Allergies Allergy/AdvReac Type Severity Reaction Status Date / Time lidocaine Allergy Hypotension Verified 06/16/18 12:45 - Blood Blood Available: No - Anesthesia Plan Pre-Op Medication Ordered: None - Acknowledgements Anesthesia Type Planned: MAC Pt an Appropriate Candidate for the Planned Anesthesia: Yes Alternatives and Risks of Anesthesia Discussed w Pt/Guardian: Yes Pt/Guardian Understands and Agrees with Anesthesia Plan: Yes PreAnesthesia Questionnaire HEENT History: Reports: Other (See Below) Other HEENT History: uses reading glasses, has upper denture Cardiovascular History: Reports: Hypertension Respiratory History: Reports: Sleep Apnea Other Respiratory History: uses CPAP, has prescribed inhaler due to pneumonia last year, no problems since Gastrointestinal History: Reports: Irritable Bowel Syndrome Genitourinary History: Reports: None 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: 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 Bleeding, Musculoskeletal History: Reports: Fibromyalgia, Osteoarthritis, RA Neurological History: Reports: None Psychiatric History: Reports: Anxiety, Depression, Panic Attack, PTSD Endocrine/Metabolic History: Reports: Hypothyroidism, Obesity/BMI 30+ Hematologic History: Reports: Anemia Immunologic History: Reports: Other (See Below) Other Immunologic History: has some form of Lupus Dermatologic History: Reports: None - Infectious Disease History Infectious Disease History: Reports: Chicken Pox, Shingles - Past Surgical History Head Surgeries/Procedures: Reports: None HEENT Surgical History: Reports: Oral Surgery Female Surgical History: Reports: Section, Dilitation & Evacuation, Endometrial Ablation, Tubal Ligation Other Female Surgeries/Procedures: x3, hysteroscopy, colpposcopy with biopsies Musculoskeletal Surgical History: Reports: None - SUBSTANCE USE Smoking Status *Q: Never Smoker Recreational Drug Use History: No - HOME MEDS Home Medications: Home Meds Cholecalciferol (Vitamin D3) [Vitamin D3] 50,000 unit PO WEEKLY 05/24/17 [ History] Diazepam [Valium] 5 mg PO TID PRN 05/24/17 [History] Escitalopram [Lexapro] 20 mg PO DAILY 05/24/17 [History] Folic Acid 3 mg PO TID 05/24/17 [History] Gabapentin [Neurontin] 600 mg PO TID 05/24/17 [History] Levothyroxine 25 mcg PO DAILY 05/24/17 [History] Lisinopril/Hydrochlorothiazide [Lisinopril-Hctz 10-12.5 mg Tab] 1 tab PO DAILY 08/21/17 [History] busPIRone [Buspar] 15 mg PO TID 05/24/17 [History] predniSONE [Prednisone] 5 mg PO BID 05/24/17 [History] traMADol [Ultram] 50 mg PO Q4H PRN 05/24/17 [History] Albuterol [Ventolin HFA] 1 puff INH Q4HR #1 inhaler 11/07/17 [Rx] DULoxetine [Cymbalta] 60 mg PO DAILY 04/26/18 [History] Diclofenac Sodium [Voltaren] 75 mg PO BID PRN 06/16/18 [History] Hydroxychloroquine [Plaquenil] 200 mg PO BID 06/16/18 [History] - CURRENT (IN HOUSE) MEDS Current Meds: Current Medications Lactated Ringer's (Ringers, Lactated) 1,000 mls @ 100 mls/hr IV ASDIRECTED [place]
[2018-06-21] MEDS ORDERED: Propofol 200 MG/20 ML SDV ONE (09:38)
[2018-06-21] MEDS ORDERED: fentaNYL 100 MCG/2 ML SDV ONE (09:38)
[2018-06-21] MEDS ORDERED: Midazolam 1 MG/ML 2 ML SDV ONE (09:40)
[2018-06-21] MEDS ORDERED: Ondansetron 4 MG/2 ML SDV ONE (10:31)
[2018-06-21] MEDS ORDERED: fentaNYL 100 MCG/2 ML SDV IVPUSH PRN (10:46)
--- NOTE | 2018-06-21 10:46 | PCM.OPNOTE ---
- General Post-Op/Procedure Note Date of Surgery/Procedure: 06/21/18 Operative Procedure(s): LEEP Findings: small area of acetowhite epithelium near cervical os. 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 Post-Op Diagnosis: Same Anesthesia Technique: General LMA Primary Surgeon: Kristyn French Anesthesia Provider: Jemima Elias Pathology: ectocervix labeled at 12 o'clock, endocervical curettings. Fluid Replacement, Intraop: 800 EBL in mLs: 10 Complications: None Known. Condition: Good
--- NOTE | 2018-06-21 11:35 | PCM.POSTAN ---
POST ANESTHESIA ASSESSMENT - MENTAL STATUS Mental Status: Alert, Oriented - RESPIRATORY Respiratory Status: Respiratory Rate WNL - CARDIOVASCULAR CV Status: Pulse Rate WNL, Blood Pressure Stable - GASTROINTESTINAL GI Status: No Symptoms - PAIN Pain Score: 0 - POST OP HYDRATION Hydration Status: Adequate & Stable - OBSERVATIONS Free Text/Narrative:: no anesthesia problems
[2018-06-21] MEDS ORDERED: traMADol 50 MG Tab PO ONE (11:41)
--- NOTE | 2018-06-21 12:13 | OR ---
SURGEON: Kristyn French M.D. DATE OF PROCEDURE: 06/21/2018 PREOPERATIVE DIAGNOSIS: Cervical intraepithelial neoplasia I, persistent x1 year. POSTOPERATIVE DIAGNOSIS: Cervical intraepithelial neoplasia I, persistent x1 year. PROCEDURE: Loop electrode excisional procedure. ANESTHESIA: General LMA. ESTIMATED BLOOD LOSS: Less than 10 mL. FLUIDS: 800 mL crystalloid. FINDINGS: Small area of acetowhite epithelium immediately at the cervical os. COMPLICATIONS: None known. DISPOSITION: Stable to recovery. SPECIMEN: Ectocervix labeled at 12 o'clock and endocervical curettings. BRIEF HISTORY: This is a 52-year-old female, she had a low-grade ARIS Pap last year. Biopsy showed CHARLEEN 1, was repeated this year with persistent CHARLEEN 1. She is immunosuppressed and therefore I did recommend proceeding with a LEEP to remove the transformation zone due to her persistent HPV, persistent dysplasia, and immunosuppression. Risks of LEEP were discussed including bleeding, infection, and she does desire to proceed. DESCRIPTION OF PROCEDURE: With the patient in dorsal lithotomy position, under adequate LMA analgesia, an appropriate time-out was held. The patient was draped. A speculum was placed in the vagina. Cervix was cleansed with dilute acetic acid. Colposcopy was performed with findings as noted above. She is allergic to lidocaine, therefore this was performed under LMA and no cervical block was performed. The cervix was treated with Lugol solution. The nonstaining area was identified. Loop electrode was then utilized to completely excise the nonstaining area with a pure cutting current of 60 rodriguez and specimen was then removed and labeled at 12 o'clock. Endocervical curettage was performed with the box curette and collected with a Cytobrush. The base of the LEEP site was cauterized with coag pure 60 with a ball tip and was completely hemostatic and the base was further treated with Monsel's solution to assure hemostasis. All the instruments removed from the vagina. Final sponge, needle, and instrument counts were reported as correct. There were no known complications. The patient was transferred to recovery in good condition. JASON QUAN /[id number]
[2018-06-21 12:50] VITALS: BP 96/48
== END 2018-06-21 12:25 | disposition home or self-care (01) ==
LOC: MW.SDS 08:28
PROVIDERS: ATTEND Obstetrics & Gynecology
DX: N87.0 Mild cervical dysplasia (principal); M06.9 Rheumatoid arthritis, unspecified; M79.7 Fibromyalgia; I10 Essential (primary) hypertension; K58.9 Irritable bowel syndrome, unspecified; G47.30 Sleep apnea, unspecified; Z99.89 Dependence on other enabling machines and devices; E07.9 Disorder of thyroid, unspecified; E66.9 Obesity, unspecified; Z68.32 Body mass index [BMI] 32.0-32.9, adult; D64.9 Anemia, unspecified; F43.10 Post-traumatic stress disorder, unspecified; F41.9 Anxiety disorder, unspecified; F32.9 Major depressive disorder, single episode, unspecified; Z79.899 Other long term (current) drug therapy; Z88.4 Allergy status to anesthetic agent
CPT/HCPCS: 36415; 57461; 84703; 85027; 88305; 88307; A9270; J2250; J2405; J2704; J3010; J7120

== ENCOUNTER 2018-12-31 17:54 | Emergency (ER) | payer OTHER ==
[2018-12-31] MEDS ORDERED: Albuterol/Ipratropium 3.0-0.5 MG/3 ML Neb Soln NEB ONE (18:35)
[2018-12-31 19:07] LABS: CHLORIDE,CL 107 mmol/L (98-107); SODIUM,NA 143 mmol/L (136-145)
--- NOTE | 2018-12-31 19:24 | EDM.PDOC ---
ED HPI GENERAL MEDICAL PROBLEM - General Chief Complaint: Fever Stated Complaint: FEVER Time Seen by Provider: 12/31/18 17:55 Source of Information: Reports: Patient History Limitations: Reports: No Limitations - History of Present Illness INITIAL COMMENTS - FREE TEXT/NARRATIVE: HISTORY AND PHYSICAL: History of present illness: Patient is a 53-year-old female who presents to the ED today with concern of cough causing burning in her chest. Patient states she was started on antibiotics this last week for strep pharyngitis. She states that since then she has developed a cough and low-grade fevers around 99F at home. Patient states she has been self adjusting medications and doses due to her recent illness. She states she has stopped her methotrexate. Patient states she has decreased her dose of her prednisone per herself. Patient states his complaint is the cough. She rates her pain 7 out of 10. Patient states the cough is beginning to make her feel short of breath at times. Patient states that due to her antibiotic use, she is experiencing vaginal itching and stats that she has a yeast infection with amicrobic use. She states she has had yeast infections in the past and that this is similar to her other infections. Denies headache, neck stiff ness, change in vision, syncope, or near syncope. Denies nausea, vomiting, abdominal pain, diarrhea, constipation, or dysuria. Has not noted any blood in urine or stool. Patient has been eating and drinking appropriately. Patient has a history of fibromyalgia, rheumatoid arthritis. Review of systems: As per history of present illness and below otherwise all systems reviewed and negative. Past medical history: As per history of present illness and as reviewed below otherwise noncontributory. Surgical history: As per history of present illness and as reviewed below otherwise noncontributory. Social history: See social history for further information Family history: As per history of present illness and as reviewed below otherwise noncontributory. Physical exam: General: Patient is alert, orientated, and in no acute distress. She is lying comfortably on exam table. HEENT: Atraumatic, normocephalic, pupils equal and reactive bilaterally, negative for conjunctival pallor or scleral icterus, mucous membranes moist, TMs normal bilaterally, throat clear, neck supple, nontender, trachea midline. No drooling or trismus noted. No meningeal signs. No hot potato voice noted. Lungs: Clear to auscultation, breath sounds equal bilaterally, chest nontender. Heart: S1S2, regular rate and rhythm without overt murmur Abdomen: Obese, soft, nondistended, nontender. Negative for masses or hepatosplenomegaly. Negative for costovertebral tenderness. Pelvis: Stable nontender. Genitourinary: Deferred. Rectal: Deferred. Skin: Intact, warm, dry. No lesions or rashes noted. Extremities: Atraumatic, negative for cords or calf pain. Neurovascular unremarkable. Neuro: Awake, alert, oriented. Cranial nerves II through XII unremarkable. Cerebellum unremarkable. Motor and sensory unremarkable throughout. Exam nonfocal. Notes: Exam and vitals today are reassuring. Will do labs and imaging today. Patient states she has been on antibiotics and is beginning to have symptoms of a yeast infection. Will rive rx for Diflucan. Supportive care measures were reviewed and discussed. Voices understanding and is agreeable to plan of care. Denies any further questions or concerns at this time. Diagnostics: CBC, CMP, UA, chest x-ray Therapeutics: Duoneb Prescription: Proair, Diflucan Impression: Bronchitis Yeast infection Plan: 1. Take medication as prescribed. You can alternate ibuprofen and Tylenol as directed for pain and discomfort. 2. Follow-up with your primary care provider or [facility] as discussed. 3. Return to ED as needed and as discussed. Definitive disposition and diagnosis as appropriate pending reevaluation and review of above. chest Pain Score (Numeric/FACES): 8 - Related Data Allergies Allergy/AdvReac Type Severity Reaction Status Date / Time lidocaine Allergy Hypotension Verified 12/31/18 18:20 Home Meds: Home Meds Diazepam [Valium] 5 mg PO TID PRN 05/24/17 [History] Escitalopram [Lexapro] 20 mg PO DAILY 05/24/17 [History] Folic Acid 3 mg PO TID 05/24/17 [History] Gabapentin [Neurontin] 600 mg PO TID 05/24/17 [History] Levothyroxine 25 mcg PO DAILY 05/24/17 [History] Lisinopril/Hydrochlorothiazide [Lisinopril-Hctz 10-12.5 mg Tab] 1 tab PO DAILY 05/24/17 [History] busPIRone [Buspar] 15 mg PO TID 05/24/17 [History] predniSONE [Prednisone] 5 mg PO BID 05/24/17 [History] Albuterol [Ventolin HFA] 1 puff INH Q4HR #1 inhaler 11/07/17 [Rx] Hydroxychloroquine [Plaquenil] 200 mg PO BID 06/16/18 [History] Cefdinir 300 mg PO BID 12/31/18 [History] Past Medical History HEENT History: Reports: Other (See Below) Other HEENT History: uses reading glasses, has upper denture Cardiovascular History: Reports: Hypertension Respiratory History: Reports: Sleep Apnea Other Respiratory History: uses CPAP, has prescribed inhaler due to pneumonia last year, no problems since Gastrointestinal History: Reports: Irritable Bowel Syndrome Genitourinary History: Reports: None PIPELINER History: Reports: 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 Uterine Bleeding, Musculoskeletal History: Reports: Fibromyalgia, Osteoarthritis, RA Neurological History: Reports: None Psychiatric History: Reports: Anxiety, Depression, Panic Attack, PTSD Endocrine/Metabolic History: Reports: Hypothyroidism, Obesity/BMI 30+ Hematologic History: Reports: Anemia Immunologic History: Reports: Other (See Below) Other Immunologic History: has some form of Lupus Oncologic (Cancer) History: Reports: None Dermatologic History: Reports: None - Infectious Disease History Infectious Disease History: Reports: Chicken Pox, Shingles - Past Surgical History Head Surgeries/Procedures: Reports: None HEENT Surgical History: Reports: Oral Surgery Cardiovascular Surgical History: Reports: None Respiratory Surgical History: Reports: None GI Surgical History: Reports: None Female Surgical History: Reports: Section, Dilitation & Evacuation, Endometrial Ablation, Tubal Ligation Other Female Surgeries/Procedures: x3, hysteroscopy, colpposcopy with biopsies Endocrine Surgical History: Reports: None Neurological Surgical History: Reports: None Musculoskeletal Surgical History: Reports: None Oncologic Surgical History: Reports: None Dermatological Surgical History: Reports: None Social & Family History - Family History Family Medical History: Noncontributory - Tobacco Use Smoking Status *Q: Never Smoker Second Hand Smoke Exposure: No - Caffeine Use Caffeine Use: Reports: None - Recreational Drug Use Recreational Drug Use: No ED ROS GENERAL - Review of Systems Review Of Systems: ROS reveals no pertinent complaints other than HPI. ED EXAM, GENERAL - Physical Exam Exam: See Below (See dictation) Course - Vital Signs Last Recorded V/S: Last Vital Signs Temp 35.6 C 12/31/18 18:18 Pulse 80 12/31/18 20:46 Resp 20 12/31/18 20:46 BP 130/78 12/31/18 20:46 Pulse Ox 96 12/31/18 20:46 - Orders/Labs/Meds Orders: Active Orders 24 hr Category Date Time Status RT Aerosol Therapy [RC] ASDIRECTED Care 12/31/18 18:35 Active Labs: Laboratory Tests 12/31/18 12/31/18 12/31/18 Range/Units 18:34 18:34 19:28 WBC 5.18 (4.0-11.0) K/uL RBC 4.13 L (4.30-5.90) M/uL Hgb 12.2 (12.0-16.0) g/dL Hct 37.0 (36.0-46.0) % MCV 89.6 (80.0-98.0) fL MCH 29.5 (27.0-32.0) pg MCHC 33.0 (31.0-37.0) g/dL RDW Std Deviation 45.6 (28.0-62.0) fl RDW Coeff of Dylon 14 (11.0-15.0) % Plt Count 199 (150-400) K/uL MPV 8.90 (7.40-12.00) fL Neut % (Auto) 62.6 (48.0-80.0) % Lymph % (Auto) 26.4 (16.0-40.0) % Lea % (Auto) 8.1 (0.0-15.0) % Eos % (Auto) 2.3 (0.0-7.0) % Baso % (Auto) 0.6 (0.0-1.5) % Neut # (Auto) 3.2 (1.4-5.7) K/uL Lymph # (Auto) 1.4 (0.6-2.4) K/uL Lea # (Auto) 0.4 (0.0-0.8) K/uL Eos # (Auto) 0.1 (0.0-0.7) K/uL Baso # (Auto) 0.0 (0.0-0.1) K/uL Nucleated RBC % 0.0 /100WBC Nucleated RBCs # 0 K/uL Sodium 143 (136-145) mmol/L Potassium 3.6 (3.5-5.1) mmol/L Chloride 107 (98-107) mmol/L Carbon Dioxide 27.0 (21.0-32.0) mmol/L BUN 8 (7.0-18.0) mg/dL Creatinine 0.8 (0.6-1.0) mg/dL Est Cr Clr Drug Dosing 68.05 mL/min Estimated GFR (MDRD) > 60.0 ml/min Glucose 130 H (74-106) mg/dL Calcium 8.5 (8.5-10.1) mg/dL Total Bilirubin 0.1 L (0.2-1.0) mg/dL AST 19 (15-37) IU/L ALT 23 (14-63) IU/L Alkaline Phosphatase 57 (46-116) U/L Total Protein 6.7 (6.4-8.2) g/dL Albumin 3.1 L (3.4-5.0) g/dL Globulin 3.6 (2.6-4.0) g/dL Albumin/Globulin Ratio 0.9 (0.9-1.6) Urine Color YELLOW Urine Appearance CLEAR Urine pH 6.0 (5.0-8.0) Ur Specific [place] >= 1.030 (1.001-1.035) Urine Protein NEGATIVE (NEGATIVE) mg/dL Urine Glucose (UA) NEGATIVE (NEGATIVE) mg/dL Urine Ketones NEGATIVE (NEGATIVE) mg/dL Urine Occult Blood NEGATIVE (NEGATIVE) Urine Nitrite NEGATIVE (NEGATIVE) Urine Bilirubin NEGATIVE (NEGATIVE) Urine Urobilinogen 0.2 (<2.0) EU/dL Ur Leukocyte Esterase NEGATIVE (NEGATIVE) Meds: Medications Discontinued Medications Generic Name Dose Route Start Last Admin Trade Name Freq PRN Reason Stop Dose Admin Albuterol/Ipratropium 3 ml 12/31/18 18:35 12/31/18 18:40 Duoneb 3.0-0.5 Mg/3 Ml NEB 12/31/18 18:36 3 ml ONETIME ONE Administration Departure - Departure Time of Disposition: 20:29 Disposition: Home, Self-Care 01 Clinical Impression: Bronchitis, Yeast infection - Discharge Information Instructions: Upper Respiratory Infection, Adult, [id number] Referrals: Jeremi Mancera MD [Primary Care Provider] - Forms: ED Department Discharge Additional Instructions: The following information is given to patients seen in the emergency department who are being discharged to home. This information is to outline your options for follow-up care. We provide all patients seen in our emergency department with a follow-up referral. The need for follow-up, as well as the timing and circumstances, are variable depending upon the specifics of your emergency department visit. If you don't have a primary care physician on staff, we will provide you with a referral. We always advise you to contact your personal physician following an emergency department visit to inform them of the circumstance of the visit and for follow-up with them and/or the need for any referrals to a consulting specialist. The emergency department will also refer you to a specialist when appropriate. This referral assures that you have the opportunity for follow-up care with a specialist. All of these measure are taken in an effort to provide you with optimal care, which includes your follow-up. Under all circumstances we always encourage you to contact your private physician who remains a resource for coordinating your care. When calling for follow-up care, please make the office aware that this follow-up is from your recent emergency room visit. If for any reason you are refused follow-up, please contact the [facility] Emergency Department at and asked to speak to the emergency department charge nurse. [facility] [address] [place] [id number] [address] 1. Take medication as prescribed. You can alternate ibuprofen and Tylenol as directed for pain and discomfort. 2. Follow-up with your primary care provider or [facility] as discussed. 3. Return to ED as needed and as discussed. - My Orders Last 24 Hours: My Active Orders 12/31/18 18:35 RT Aerosol Therapy [RC] ASDIRECTED - Assessment/Plan Last 24 Hours: My Active Orders 12/31/18 18:35 RT Aerosol Therapy [RC] ASDIRECTED
--- NOTE | 2018-12-31 19:49 | CR ---
INDICATION: Shortness of breath. TECHNIQUE: Two-view. FINDINGS: Heart size is within normal limits. The lungs are free of infiltrate. There is no pulmonary edema or pneumothorax. Mild anterior endplate spurring of the thoracic spine is noted. IMPRESSION: Clear chest. Dictated by Carlo Garber MD @ 12/31/2018 7:47:07 PM Dictated by: Carlo Garber MD @ 12/31/2018 19:47:14 (Electronically Signed)
[2018-12-31 20:54] VITALS: BP 130/78
== END 2018-12-31 20:46 | disposition home or self-care (01) ==
LOC: MW.ED 17:54
DX: J40 Bronchitis, not specified as acute or chronic (principal); B37.9 Candidiasis, unspecified; I10 Essential (primary) hypertension; F41.9 Anxiety disorder, unspecified; F32.9 Major depressive disorder, single episode, unspecified; E03.9 Hypothyroidism, unspecified; Z79.899 Other long term (current) drug therapy; Z88.8 Allergy status to other drugs, medicaments and biological substances
CPT/HCPCS: 36415; 71046; 71046-26; 80053; 81003; 85025; 87804; 94640; 99284-25; J7620-GY

== ENCOUNTER 2022-07-07 05:15 | Emergency (ER) | payer OTHER | END 2022-07-07 17:50 | disposition left against medical advice (07) | LOC: MW.ED 05:15 | DX: Z53.21 Procedure and treatment not carried out due to patient leaving prior to being seen by health care provider (principal) ==